=== PATIENT | male | born 1980 | race Caucasian/White ===

== ENCOUNTER 2018-11-02 13:38 | Emergency (ER) | payer BC ==
[2018-11-02 13:56] VITALS: BP 168/97
--- NOTE | 2018-11-02 14:55 | UC ---
Back Pain HPI - HPI Summary HPI Summary: L flank pain which started at the front and then migrated to his back L/flank; started 2 days ago. Although he feels hes urinating a bit less he denies blood in urine, n/v, dysuria. - History of Current Complaint Chief Complaint: UCBackPain Stated Complaint: L FLANK PAIN, CHILLS Time Seen by Provider: 11/02/18 14:46 Hx Obtained From: Patient Onset/Duration: Sudden Onset Pain Intensity: 3 Pain Scale Used: 0-10 Numeric Character: Sharp - but improved since yesterday Aggravating Factor(s): Nothing Alleviating Factor(s): Nothing - Allergies/Home Medications Allergies/Adverse Reactions: Allergies Allergy/AdvReac Type Severity Reaction Status Date / Time No Known Allergies Allergy Verified 11/02/18 13:56 Home Medications: Home Medications Famotidine [Pepcid] 11/02/18 [History] Ibuprofen TAB* [Motrin TAB* 600 MG] 11/02/18 [History] Multivitamin [Multiple Vitamins] 11/02/18 [History] PMH/Surg Hx/FS Hx/Imm Hx Previously Healthy: Yes - Surgical History Surgical History: Yes Surgery Procedure, Year, and Place: left knee surgery age 14. 3 sets of ear tubes - Social History Alcohol Use: Rare Substance Use Type: None Smoking Status (MU): Never Smoked Tobacco Review of Systems All Other Systems Reviewed And Are Negative: Yes Constitutional: Positive: Negative Skin: Positive: Negative Respiratory: Positive: Negative Cardiovascular: Positive: Negative Genitourinary: Positive: Frequency - decreased. Negative: Dysuria, Hematuria, Urgency, Vaginal/Penile Discharge Musculoskeletal: Positive: Other: - L flank pain Neurological: Negative: Headache Physical Exam Triage Information Reviewed: Yes Appearance: Well-Appearing, No Pain Distress Vital Signs: Initial Vital Signs Temp 97.1 F 11/02/18 13:47 Pulse 98 11/02/18 13:47 Resp 16 11/02/18 13:47 BP 168/97 11/02/18 13:47 Pulse Ox 100 11/02/18 13:47 Vital Signs Reviewed: Yes Respiratory Exam: Normal Cardiovascular Exam: Normal Abdomen Description: Positive: Nontender, Soft. Negative: CVA Tenderness (R), CVA Tenderness (L) Back Pain Course/Dx - Course Course Of Treatment: 2 day hx of L flank pain and neg. UA w/ improving pain. Low suspicion for UTI but kidney stone on differential. Advised to go to ED if pain worsens to obtain a CT which we do not have on sight. This could rule out kidney stone. - Differential Dx/Diagnosis Differential Diagnosis/HQI/PQRI: Renal Colic, Strain, Sprain, Other - kidney stone Provider Diagnosis: Flank pain, Elevated blood pressure reading Discharge - Sign-Out/Discharge Documenting (check all that apply): Patient Departure All imaging exams completed and their final reports reviewed: No Studies - Discharge Plan Condition: Good Disposition: HOME Patient Education Materials: Flank Pain (ED) Referrals: No Primary Care Phys,NOPCP [Primary Care Provider] - Additional Instructions: Please go to Emergency Room if pain worsens or if you develop new symptoms. - Billing Disposition and Condition Condition: GOOD Disposition: Home
== END 2018-11-02 15:09 | disposition home or self-care (01) ==
LOC: UCEAST 13:38
DX: R10.9 Unspecified abdominal pain (principal); R03.0 Elevated blood-pressure reading, without diagnosis of hypertension
CPT/HCPCS: 81003; 99201; G0463

== ENCOUNTER 2020-06-26 12:04 | Observation (INO) ==
[2020-06-26 14:06] LABS: ABS Eosinophils 0.1 10^3/ul (0-0.6); ABS Lymphocytes 1.4 10^3/ul (1.0-4.8); ABS Monocytes 0.6 10^3/ul (0-0.8); Eosinophil % 2.1 %; Hematocrit 51 % (42-52); Lymphocyte % 26.9 %; Mean Corpuscular HGB Conc 35 g/dL (31-36); Mean Corpuscular Hemoglobin 30 pg (27-31); Mean Corpuscular Volume 86 fL (80-94); Mean Platelet Volume 7.2 fL (7.4-10.4); Nucleated Red Blood Cells % 0.2; Platelet Count 226 10^3/uL (150-450); Red Blood Count 5.98 10^6 /uL (4.18-5.48); Red Cell Distribution Width 13 % (10-15); White Blood Count 5.1 10^3/uL (3.5-10.8)
[2020-06-26 14:31] LABS: Albumin 4.6 g/dL (3.2-5.2); Albumin/Globulin Ratio 1.6 (1-3); BUN/Creatinine Ratio 13.5 (8-20); Calcium 9.7 mg/dL (8.6-10.3); EGFR African American 71.3 (>60); Globulin 2.9 g/dL (2-4); Magnesium 2.1 mg/dL (1.9-2.7); Potassium 3.5 mmol/L (3.5-5.0); Total Bilirubin 0.7 mg/dL (0.2-1.0); Total Protein 7.5 g/dL (6.4-8.9)
[2020-06-26] MEDS ORDERED: Iodixanol (CONTRAST) 320 MG/ML 100 ML SDV IV ONE (14:49)
[2020-06-26] MEDS ORDERED: Ondansetron 4 mg VIAL 2 MG/ML 2 ml VIAL IV ONE (15:04)
[2020-06-26 15:13] LABS: TSH Ultra Thyroid Stim Horm 3.79 mcIU/mL (0.34-5.60)
[2020-06-26] MEDS ORDERED: [UNRECOGNIZED DRUG - MIXTURE] IM ONE (15:59)
[2020-06-26 16:13] LABS: HDL Cholesterol 46.7 mg/dL
[2020-06-26] MEDS ORDERED: Enoxaparin 40 MG/0.4 ML SYR SUBCUT SCH (17:00)
[2020-06-27 11:46] VITALS: BP 136/90
== END 2020-06-27 11:45 | disposition home or self-care (01) ==
LOC: MEDTELE 12:04 → ED 12:04 → MEDTELE 21:09
PROVIDERS: ADMIT Internal Medicine; ATTEND Internal Medicine